=== PATIENT | female | born 1930 | race Caucasian/White ===

== ENCOUNTER 2017-07-22 02:58 | Observation (INO) | payer MEDICARE, BC ==
[~2017-07-22] VITALS: Ht 160 cm; Wt 82.0 kg
[~2017-07-22 02:58] MED LIST: CHOL400T32 PO; COR3.125T PO; CYAN-19 PO; FOLI0.4T2 PO; LISI-234 PO; MULT-1085 PO; OMEG1CAP2 PO; OSC500T PO; POTA-82 PO; VITA400C65 PO; WARF-55 PO
[2017-07-22 03:43] LABS: BASOPHILS % (AUTO) 0.7 % (0-1); EOSINOPHILS # (AUTO) 0.3 X10'3 (0-0.9); EOSINOPHILS % (AUTO) 3.6 % (0-6); HEMATOCRIT 39.4 % (35.0-45.0); HEMOGLOBIN 13.4 g/dl (12.0-16.0); LYMPHOCYTES # (AUTO) 2.3 X10'3 (1.1-4.8); LYMPHOCYTES % (AUTO) 33.2 % (21-51); MEAN CORPUSCULAR HEMOGLOBIN 31.8 PG (27.0-31.0); MEAN CORPUSCULAR HGB CONC 34.1 % (33.0-36.5); MEAN CORPUSCULAR VOLUME 93.2 FL (78-98); MEAN PLATELET VOLUME 8.6 FL (7.4-10.4); MONOCYTES # (AUTO) 0.7 X10'3 (0-0.9); MONOCYTES % (AUTO) 9.7 % (2-12); NEUTROPHILS # (AUTO) 3.7 X10'3 (1.8-7.7); NEUTROPHILS % (AUTO) 52.8 % (42-75); PLATELET COUNT 153 X10'3 (140-440); RED BLOOD COUNT 4.23 X10'6 (4.20-5.60); RED CELL DISTRIBUTION WIDTH 13.2 % (11.5-14.5); WHITE BLOOD COUNT 6.9 X10'3 (4.5-11.0)
[2017-07-22] MEDS ORDERED: LISI1TAB11 PO (03:49)
[2017-07-22] MEDS ORDERED: OXYB10TA4 PO (03:49)
[2017-07-22 03:55] LABS: INR 1.9 INR; PARTIAL THROMBOPLASTIN TIME 42 SECONDS (22-32); PROTHROMBIN TIME 19.1 SECONDS (9.0-12.0)
[2017-07-22 03:59] LABS: ALANINE AMINOTRANSFERASE 31 U/L (12-78); ALBUMIN 4.1 G/DL (3.4-5.0); ALBUMIN/GLOBULIN RATIO 1.4 (1.1-1.5); ALKALINE PHOSPHATASE 82 IU/L (46-116); ANION GAP 9 (8-16); ASPARTATE AMINO TRANSFERASE 21 U/L (10-37); BILIRUBIN,TOTAL 0.9 MG/DL (0.1-1.0); BLOOD UREA NITROGEN 16 MG/DL (7-18); BUN/CREATININE RATIO 19.5 (6.6-38.0); CALCIUM 9.3 MG/DL (8.5-10.1); CHLORIDE 103 MMOL/L (99-107); CREATININE 0.82 MG/DL (0.40-0.90); GLUCOSE 103 MG/DL (70-104); POTASSIUM 3.5 MMOL/L (3.5-5.1); SODIUM 141 MMOL/L (135-145); TOTAL CARBON DIOXIDE 29.2 MMOL/L (24-32); TOTAL PROTEIN 7.1 G/DL (6.4-8.2); eGFR 66 ML/MIN
[2017-07-22] MEDS ORDERED: acetaminophen 325mg tablet PO PRN ×2 (04:20)
[2017-07-22] MEDS ORDERED: morphine 4 MG/ML inj SYRINge IV PRN ×2 (04:20)
[2017-07-22] MEDS ORDERED: nitroGLYCERIN 0.4mg SUBLingual tab SL PRN (04:20)
[2017-07-22] MEDS ORDERED: cloNIDine 0.1 mg tablet PO PRN (05:30)
[2017-07-22 05:45] VITALS: BP 186/114
[2017-07-22 06:00] VITALS: BP 185/112
[2017-07-22 07:01] LABS: CHOLESTEROL 146 MG/DL (0-200); HDL CHOLESTEROL 49 MG/DL (35-60); LDL CHOLESTEROL 86 MG/DL (50-100); TRIGLYCERIDES 41 MG/DL (20-135)
[2017-07-22] MEDS ORDERED: aspirin 325mg tablet PO SCH (08:00)
[2017-07-22] MEDS ORDERED: HYDROchlorothiazide 25mg tablet PO SCH (08:00)
[2017-07-22] MEDS ORDERED: multivitamins, therapeutics tablet PO SCH (08:00)
[2017-07-22] MEDS ORDERED: oxybutynin 5mg tablet PO SCH (08:00)
[2017-07-22] MEDS ORDERED: heparin, porcine 5000 units/ml vial SQ SCH (08:00)
[2017-07-22] MEDS ORDERED: lisinopril 20mg tablet PO SCH (08:00)
[2017-07-22] MEDS ORDERED: folic acid 0.4mg tablet PO SCH (08:00)
[2017-07-22] MEDS ORDERED: carvedilol 6.25mg tablet PO SCH (08:00)
[2017-07-22] MEDS ORDERED: cholecalciferol (vitamin D) 400 unit tablet PO SCH (08:00)
[2017-07-22] MEDS ORDERED: calcium carbonate 500mg tablet PO SCH (08:00)
[2017-07-22] MEDS ORDERED: non-formulary drug (Omega-3 Fatty Acids/Fish Oil (Fish Oil 1,000 mg Capsule) 1 CAP) PO SCH (08:00)
[2017-07-22] MEDS ORDERED: cyanocobalamin 500mcg tablet PO SCH (08:00)
[2017-07-22] MEDS ORDERED: vitamin E 400 unit capsule PO SCH (08:00)
[2017-07-22] MEDS ORDERED: potassium Cl 20 mEq SR tablet PO SCH (08:00)
[2017-07-22] MEDS ORDERED: magnesium Cl slow-release 64mg tablet PO PRN (09:00)
[2017-07-22] MEDS ORDERED: magnesium 4gm in 100ml NS 100 ML IV PRN (09:00)
[2017-07-22] MEDS ORDERED: magnesium 2GM in 50ml NS 50 ML IV PRN (09:00)
[2017-07-22] MEDS ORDERED: potassium Cl 20 mEq SR tablet PO PRN ×2 (09:00)
[2017-07-22] MEDS ORDERED: potassium Cl 40MEQ/NS 500ml 500 ML IV PRN ×2 (09:00)
[2017-07-22 10:42] VITALS: BP 147/92
[2017-07-22] MEDS ORDERED: NITR0.4T51 SL (10:53)
[2017-07-22] MEDS ORDERED: ASPI-611 PO (10:53)
[2017-07-22 11:00] VITALS: BP 148/97
[2017-07-22] MEDS ORDERED: warfarin 5mg tablet PO SCH (21:00)
[2017-07-22] MEDS ORDERED: carVEDilol 3.125mg tablet PO SCH (21:00)
[2017-07-22] MEDS ORDERED: temazepam 15mg capsule PO PRN (21:00)
== END 2017-07-22 11:55 | disposition home or self-care (01) ==
LOC: ER 02:59 → PCU 3S 04:16 → UNDOADMOB 04:16 → INTOOBSV 04:16 → PCU 3S 05:31 → CMPBEDREQ 07:01 → UNDODISOB 11:55
PROVIDERS: ADMIT Internal Medicine; ATTEND Internal Medicine
DX: R07.89 Other chest pain (principal); I48.91 Unspecified atrial fibrillation; I35.0 Nonrheumatic aortic (valve) stenosis; I10 Essential (primary) hypertension; Z86.73 Personal history of transient ischemic attack (TIA), and cerebral infarction without residual deficits; Z79.01 Long term (current) use of anticoagulants
CPT/HCPCS: 36415; 71045; 80053; 80061; 84484; 85025; 85610; 85730; 87070; 93005; 96372; 99285; G0378; J1644

== ENCOUNTER 2018-02-25 02:12 | Inpatient (IN) | payer MEDICARE, BC ==
[~2018-02-25] VITALS: Ht 160 cm; Wt 78.0 kg
[~2018-02-25 02:12] MED LIST changes: -LISI-234 PO; +LISI1TAB11 PO; +NITR0.4T51 SL; +OXYB10TA4 PO
[2018-02-25 02:57] LABS: BASOPHILS % (AUTO) 0.7 % (0-1); EOSINOPHILS # (AUTO) 0.2 X10'3 (0-0.9); EOSINOPHILS % (AUTO) 3.1 % (0-6); HEMATOCRIT 36.6 % (35.0-45.0); HEMOGLOBIN 12.4 g/dl (12.0-16.0); LYMPHOCYTES % (AUTO) 29.3 % (21-51); MEAN CORPUSCULAR HEMOGLOBIN 30.9 PG (27.0-31.0); MEAN CORPUSCULAR HGB CONC 33.8 % (33.0-36.5); MEAN CORPUSCULAR VOLUME 91.5 FL (78-98); MEAN PLATELET VOLUME 8.9 FL (7.4-10.4); MONOCYTES # (AUTO) 0.7 X10'3 (0-0.9); MONOCYTES % (AUTO) 10.1 % (2-12); NEUTROPHILS # (AUTO) 3.9 X10'3 (1.8-7.7); NEUTROPHILS % (AUTO) 56.8 % (42-75); PLATELET COUNT 176 X10'3 (140-440); RED CELL DISTRIBUTION WIDTH 13.6 % (11.5-14.5); WHITE BLOOD COUNT 6.9 X10'3 (4.5-11.0)
[2018-02-25 03:11] LABS: ALANINE AMINOTRANSFERASE 33 U/L (12-78); ALBUMIN 3.7 G/DL (3.4-5.0); ALBUMIN/GLOBULIN RATIO 1.2 (1.1-1.5); ALKALINE PHOSPHATASE 113 IU/L (46-116); ANION GAP 10 (8-16); ASPARTATE AMINO TRANSFERASE 24 U/L (10-37); BILIRUBIN,TOTAL 0.8 MG/DL (0.1-1.0); BLOOD UREA NITROGEN 20 MG/DL (7-18); BUN/CREATININE RATIO 23.5 (6.6-38.0); CALCIUM 9.7 MG/DL (8.5-10.1); CHLORIDE 102 MMOL/L (99-107); CREATININE 0.85 MG/DL (0.40-0.90); GLUCOSE 114 MG/DL (70-104); POTASSIUM 3.6 MMOL/L (3.5-5.1); SODIUM 140 MMOL/L (135-145); TOTAL CARBON DIOXIDE 28.2 MMOL/L (24-32); TOTAL PROTEIN 6.8 G/DL (6.4-8.2); eGFR 64 ML/MIN
[2018-02-25 03:13] LABS: INR 1.7 INR; PARTIAL THROMBOPLASTIN TIME 42 SECONDS (22-32); PROTHROMBIN TIME 16.7 SECONDS (9.0-12.0)
[2018-02-25] MEDS ORDERED: LISINOPRIL-HCTZ 20-12.5 MG TAB (03:27)
[2018-02-25] MEDS ORDERED: OXYBUTYNIN CL ER 10 MG TABLET (03:27)
[2018-02-25] MEDS ORDERED: WARFARIN SODIUM 1 MG TABLET (03:27)
[2018-02-25] MEDS ORDERED: VITAMIN D3 400 UNIT TABLET (03:27)
[2018-02-25] MEDS ORDERED: CARVEDILOL 6.25 MG TABLET (03:27)
[2018-02-25] MEDS ORDERED: WARFARIN SODIUM 5 MG TABLET (03:27)
[2018-02-25] MEDS ORDERED: normal saline 1000ml 1,000 ML IV SCH (03:59)
[2018-02-25] MEDS ORDERED: magnesium hydroxide 30ml (MOM) UD suspension PO PRN (04:00)
[2018-02-25] MEDS ORDERED: ondansetron/PF 4mg/2ml inj IV PRN (04:00)
[2018-02-25] MEDS ORDERED: bisacodyl 10mg suppository rectal RC PRN (04:00)
[2018-02-25] MEDS ORDERED: mag hydrox/Alum hydrox/simeth 30ml oral suspension PO PRN (04:00)
[2018-02-25] MEDS ORDERED: acetaminophen 325mg tablet PO PRN ×2 (04:00)
[2018-02-25] MEDS ORDERED: HYDROcodone/acetaminophen 10/325mg tab PO PRN (04:00)
[2018-02-25] MEDS ORDERED: metoclopramide 5 mg/ml inj IV PRN (04:00)
[2018-02-25] MEDS ORDERED: morphine 2 MG/ML inj. syringe IV PRN (04:00)
[2018-02-25] MEDS ORDERED: HYDROmorphone 1 mg/ml syringe IV PRN (04:00)
[2018-02-25] MEDS ORDERED: acetaminophen 650mg rectal suppository RC PRN (04:00)
[2018-02-25] MEDS ORDERED: hydrALAZINE 20mg/ml inj. IV PRN (04:05)
[2018-02-25 05:18] LABS: D-DIMER 0.31 MG/L FEU (0-0.50)
[2018-02-25 05:28] LABS: MAGNESIUM 1.7 MG/DL (1.5-2.4); PHOSPHORUS 3.8 MG/DL (2.3-4.5)
[2018-02-25 06:04] LABS: HEMOGLOBIN A1C 5.4 % (4.5-6.2)
[2018-02-25] MEDS ORDERED: nitroGLYCERIN 0.4mg SUBLingual tab SL PRN (06:45)
[2018-02-25 07:50] VITALS: BP 160/108
[2018-02-25] MEDS ORDERED: carvedilol 6.25mg tablet PO SCH (08:00)
[2018-02-25] MEDS ORDERED: furosemide 40mg/4ml inj IV SCH (08:00)
[2018-02-25] MEDS ORDERED: HYDROchlorothiazide 25mg tablet PO SCH (08:00)
[2018-02-25] MEDS ORDERED: oxybutynin 5mg tablet PO SCH (08:00)
[2018-02-25] MEDS ORDERED: lisinopril 20mg tablet PO SCH (08:00)
[2018-02-25] MEDS ORDERED: warfarin 5mg tablet PO SCH (08:00)
[2018-02-25] MEDS ORDERED: atorvastatin 20mg tablet PO SCH (08:00)
[2018-02-25] MEDS ORDERED: docusate sod 100mg capsule PO SCH (08:00)
[2018-02-25] MEDS ORDERED: nitroGLYCERIN 0.2mg/hour patch TD SCH (08:00)
[2018-02-25] MEDS ORDERED: aspirin 81mg tab.chew PO SCH (08:30)
[2018-02-25] MEDS ORDERED: FURO-150 PO (14:05)
[2018-02-25] MEDS ORDERED: temazepam 15mg capsule PO PRN (21:00)
[2018-02-25] MEDS ORDERED: famotidine 20mg tablet PO SCH (21:00)
== END 2018-02-25 16:15 | disposition home or self-care (01) | DRG 304 ==
LOC: ER 02:13 → ED HOLD 03:59 → ORTHO 4S 07:50
PROVIDERS: ADMIT Family Medicine; ATTEND Internal Medicine
DX: I16.1 Hypertensive emergency (principal); I50.33 Acute on chronic diastolic (congestive) heart failure; I11.0 Hypertensive heart disease with heart failure; I25.10 Atherosclerotic heart disease of native coronary artery without angina pectoris; I35.0 Nonrheumatic aortic (valve) stenosis; I48.0 Paroxysmal atrial fibrillation; I25.2 Old myocardial infarction; Z79.899 Other long term (current) drug therapy; Z79.01 Long term (current) use of anticoagulants; Z91.011 Allergy to milk products; Z86.73 Personal history of transient ischemic attack (TIA), and cerebral infarction without residual deficits; Z82.49 Family history of ischemic heart disease and other diseases of the circulatory system
CPT/HCPCS: 36415; 71045; 80053; 83036; 83735; 83880; 84100; 84443; 84484; 85025; 85379; 85610; 85730; 87070; 93005; 93306; 99285; G0378; J1940

== ENCOUNTER 2020-02-16 13:04 | Emergency (ER) | payer MEDICARE, BC ==
[~2020-02-16] VITALS: Ht 165.1 cm; Wt 72.0 kg
[~2020-02-16 13:04] MED LIST changes: -CYAN-19 PO; +CYAN100019 PO; +FURO-150 PO; -LISI1TAB11 PO; +LISI1TAB51 PO; -NITR0.4T51 SL; +VITA-134 PO; -VITA400C65 PO
--- NOTE | 2020-02-16 13:28 | NUR ---
Due to the unknown regarding a positive head strike and patient being on warfarin. rAic KHANNA calling patient a trauma level 2, Tiera FU aware and notified help desk specialist regarding trauma to be paged out.
--- NOTE | 2020-02-16 13:40 | NUR ---
PT TO CT VIA [facility]
[2020-02-16 13:52] LABS: BASOPHILS # (AUTO) 0.1 X10'3 (0-0.2); BASOPHILS % (AUTO) 1.3 % (0-1); EOSINOPHILS # (AUTO) 0.2 X10'3 (0-0.9); EOSINOPHILS % (AUTO) 2.6 % (0-6); HEMATOCRIT 34.3 % (35.0-45.0); HEMOGLOBIN 11.7 g/dl (12.0-16.0); LYMPHOCYTES # (AUTO) 1.7 X10'3 (1.1-4.8); LYMPHOCYTES % (AUTO) 22.1 % (21-51); MEAN CORPUSCULAR HEMOGLOBIN 32.9 PG (27.0-31.0); MEAN CORPUSCULAR HGB CONC 34.3 g/dL (33.0-36.5); MEAN PLATELET VOLUME 8.6 FL (7.4-10.4); MONOCYTES # (AUTO) 0.7 X10'3 (0-0.9); MONOCYTES % (AUTO) 9.4 % (2-12); NEUTROPHILS % (AUTO) 64.6 % (42-75); PLATELET COUNT 183 X10'3 (140-440); RED BLOOD COUNT 3.57 X10'6 (4.20-5.60); RED CELL DISTRIBUTION WIDTH 14.4 % (11.5-14.5); WHITE BLOOD COUNT 7.7 X10'3 (4.5-11.0)
[2020-02-16 14:02] LABS: ALANINE AMINOTRANSFERASE 25 U/L (12-78); ALBUMIN 3.4 G/DL (3.4-5.0); ALKALINE PHOSPHATASE 90 IU/L (46-116); ANION GAP 7 (8-16); ASPARTATE AMINO TRANSFERASE 26 U/L (10-37); BLOOD UREA NITROGEN 24 MG/DL (7-18); CALCIUM 9.6 MG/DL (8.5-10.1); CHLORIDE 105 MMOL/L (99-107); GLUCOSE 124 MG/DL (70-104); SODIUM 143 MMOL/L (135-145); TOTAL CARBON DIOXIDE 31.4 MMOL/L (24-32); TOTAL PROTEIN 6.8 G/DL (6.4-8.2); eGFR 52 ML/MIN
[2020-02-16 14:03] LABS: POTASSIUM 4.2 MMOL/L (3.5-5.1)
--- NOTE | 2020-02-16 14:05 | NUR ---
PT BACK FROM CT
--- NOTE | 2020-02-16 15:00 | NUR ---
PA AWARE THAT UA NOT DONE, OK TO DISCHARGE
[2020-02-16 15:15] VITALS: BP 129/81
== END 2020-02-16 15:10 | disposition home or self-care (01) ==
LOC: ER 13:05
DX: K04.7 Periapical abscess without sinus (principal); R79.1 Abnormal coagulation profile; I48.91 Unspecified atrial fibrillation; F03.90 Unspecified dementia, unspecified severity, without behavioral disturbance, psychotic disturbance, mood disturbance, and anxiety; I10 Essential (primary) hypertension; I25.10 Atherosclerotic heart disease of native coronary artery without angina pectoris; Z98.890 Other specified postprocedural states; Z91.011 Allergy to milk products; Z79.01 Long term (current) use of anticoagulants; Z79.899 Other long term (current) drug therapy; Z86.73 Personal history of transient ischemic attack (TIA), and cerebral infarction without residual deficits
CPT/HCPCS: 36415; 70450; 80053; 85025; 85610; 99284; 99285

== ENCOUNTER 2020-02-20 18:25 | Emergency (ER) | payer MEDICARE, BC ==
[~2020-02-20] VITALS: Ht 172.7 cm; Wt 65.0 kg
[2020-02-20] MEDS ORDERED: ondansetron/PF 4mg/2ml inj IV ONE (18:55)
[2020-02-20 19:01] LABS: BASOPHILS # (AUTO) 0.1 X10'3 (0-0.2); BASOPHILS % (AUTO) 0.6 % (0-1); EOSINOPHILS # (AUTO) 0.1 X10'3 (0-0.9); HEMATOCRIT 34.1 % (35.0-45.0); HEMOGLOBIN 11.4 g/dl (12.0-16.0); LYMPHOCYTES # (AUTO) 0.4 X10'3 (1.1-4.8); LYMPHOCYTES % (AUTO) 3.9 % (21-51); MEAN CORPUSCULAR HEMOGLOBIN 32.4 PG (27.0-31.0); MEAN CORPUSCULAR HGB CONC 33.5 g/dL (33.0-36.5); MEAN CORPUSCULAR VOLUME 96.9 FL (78-98); MEAN PLATELET VOLUME 8.2 FL (7.4-10.4); MONOCYTES # (AUTO) 0.7 X10'3 (0-0.9); MONOCYTES % (AUTO) 6.4 % (2-12); NEUTROPHILS % (AUTO) 88.1 % (42-75); PLATELET COUNT 167 X10'3 (140-440); RED BLOOD COUNT 3.52 X10'6 (4.20-5.60); RED CELL DISTRIBUTION WIDTH 14.4 % (11.5-14.5); WHITE BLOOD COUNT 11.4 X10'3 (4.5-11.0)
[2020-02-20 19:18] LABS: ALANINE AMINOTRANSFERASE 22 U/L (12-78); ALBUMIN 3.3 G/DL (3.4-5.0); ALBUMIN/GLOBULIN RATIO 1.1 (1.1-1.5); ALKALINE PHOSPHATASE 68 IU/L (46-116); ANION GAP 7 (8-16); ASPARTATE AMINO TRANSFERASE 13 U/L (10-37); BILIRUBIN,TOTAL 1.7 MG/DL (0.1-1.0); BLOOD UREA NITROGEN 29 MG/DL (7-18); BUN/CREATININE RATIO 27.1 (6.6-38.0); CALCIUM 8.6 MG/DL (8.5-10.1); CHLORIDE 108 MMOL/L (99-107); CREATININE 1.07 MG/DL (0.40-0.90); GLUCOSE 129 MG/DL (70-104); LIPASE 57 U/L (73-393); SODIUM 147 MMOL/L (135-145); TOTAL PROTEIN 6.4 G/DL (6.4-8.2); eGFR 49 ML/MIN
[2020-02-20] MEDS ORDERED: potassium Cl 20 mEq SR tablet PO ONE (19:25)
--- NOTE | 2020-02-20 20:10 | NUR ---
PATIENT SUCCESFULLY DRANK 240 mL OF WATER PASSING PO CHALLENGE
[2020-02-20] MEDS ORDERED: ONDA4TAB6 PO (22:04)
[2020-02-20 22:17] VITALS: BP 116/78
== END 2020-02-20 22:23 | disposition home or self-care (01) ==
LOC: ER 18:26
DX: R19.7 Diarrhea, unspecified (principal); R11.2 Nausea with vomiting, unspecified; F03.90 Unspecified dementia, unspecified severity, without behavioral disturbance, psychotic disturbance, mood disturbance, and anxiety; I48.91 Unspecified atrial fibrillation; I10 Essential (primary) hypertension; I25.10 Atherosclerotic heart disease of native coronary artery without angina pectoris; Z86.73 Personal history of transient ischemic attack (TIA), and cerebral infarction without residual deficits; Z95.1 Presence of aortocoronary bypass graft; Z91.011 Allergy to milk products; Z79.01 Long term (current) use of anticoagulants; Z79.899 Other long term (current) drug therapy; Z98.818 Other dental procedure status
CPT/HCPCS: 36415; 80053; 83690; 85025; 96374; 99284; J2405; 96365; 96375

== ENCOUNTER 2020-02-22 10:19 | Inpatient (IN) | payer MEDICARE, BC ==
[~2020-02-22] VITALS: Ht 157.5 cm; Wt 72.7 kg
[~2020-02-22 10:19] MED LIST changes: +ONDA4TAB6 PO
--- NOTE | 2020-02-22 11:19 | NUR ---
To CT scan via gurney with the side rails raised.
[2020-02-22 11:52] LABS: BASOPHILS # (AUTO) 0.1 X10'3 (0-0.2); BASOPHILS % (AUTO) 0.9 % (0-1); EOSINOPHILS # (AUTO) 0.3 X10'3 (0-0.9); EOSINOPHILS % (AUTO) 3.7 % (0-6); HEMATOCRIT 32.9 % (35.0-45.0); HEMOGLOBIN 11.2 g/dl (12.0-16.0); LYMPHOCYTES # (AUTO) 1.2 X10'3 (1.1-4.8); MEAN CORPUSCULAR HGB CONC 34.1 g/dL (33.0-36.5); MEAN CORPUSCULAR VOLUME 96.7 FL (78-98); MEAN PLATELET VOLUME 8.6 FL (7.4-10.4); MONOCYTES # (AUTO) 0.9 X10'3 (0-0.9); MONOCYTES % (AUTO) 12.1 % (2-12); NEUTROPHILS # (AUTO) 5.2 X10'3 (1.8-7.7); NEUTROPHILS % (AUTO) 67.3 % (42-75); PLATELET COUNT 176 X10'3 (140-440); RED CELL DISTRIBUTION WIDTH 14.6 % (11.5-14.5); WHITE BLOOD COUNT 7.7 X10'3 (4.5-11.0)
[2020-02-22 11:59] LABS: ALBUMIN 3.4 G/DL (3.4-5.0); ANION GAP 6 (8-16); BLOOD UREA NITROGEN 35 MG/DL (7-18); BUN/CREATININE RATIO 36.5 (6.6-38.0); CALCIUM 9.9 MG/DL (8.5-10.1); CHLORIDE 108 MMOL/L (99-107); CREATININE 0.96 MG/DL (0.40-0.90); GLUCOSE 109 MG/DL (70-104); POTASSIUM 3.3 MMOL/L (3.5-5.1); SODIUM 147 MMOL/L (135-145); TOTAL CARBON DIOXIDE 33.4 MMOL/L (24-32); eGFR 55 ML/MIN
--- NOTE | 2020-02-22 12:22 | NUR ---
Pt reported she started having Chest pain. Dr. Howard is aware and plans to initiate the cardiac work up with zero hour troponin to be collected now. EKG is being completed at this time.
[2020-02-22] MEDS ORDERED: iohexol 300mg/ml 100ml inj. ONE (12:44)
--- NOTE | 2020-02-22 12:50 | NUR ---
Pt transported back to CT scan at this time. Pt is aggitated due to her baseline mental status so her daughter is with her to attempt to help keep the patient calm.
[2020-02-22] MEDS ORDERED: aspirin 81mg tab.chew PO ONE (13:05)
[2020-02-22] MEDS ORDERED: potassium CL 10mEq/100ml bag 100 ML IV PRN ×2 (13:40)
[2020-02-22] MEDS ORDERED: metoprolol tartrate 1mg/ml inj IV PRN (13:40)
[2020-02-22] MEDS ORDERED: potassium Cl 20 mEq SR tablet PO PRN ×2 (13:40)
[2020-02-22] MEDS ORDERED: regadenoson 0.4mg/5ml syringe IV ONE (13:40)
[2020-02-22] MEDS ORDERED: nitroGLYCERIN 0.4mg SUBLingual tab SL PRN (13:40)
[2020-02-22] MEDS ORDERED: HYDROcodone/acetaminophen 5mg/325mg tablet PO PRN (13:40)
[2020-02-22] MEDS ORDERED: magnesium 2GM in 50ml NS 50 ML IV PRN (13:40)
[2020-02-22] MEDS ORDERED: magnesium hydroxide 30ml (MOM) UD suspension PO PRN (13:40)
[2020-02-22] MEDS ORDERED: morphine 2 MG/ML inj. syringe IV PRN (13:40)
[2020-02-22] MEDS ORDERED: acetaminophen 325mg tablet PO PRN (13:40)
[2020-02-22] MEDS ORDERED: aminophylline 250mg/10ml inj. IV PRN (13:40)
[2020-02-22] MEDS ORDERED: ondansetron/PF 4mg/2ml inj IV PRN (13:40)
[2020-02-22] MEDS ORDERED: magnesium Cl slow-release 64mg tablet PO PRN (13:40)
[2020-02-22] MEDS ORDERED: mag hydrox/Alum hydrox/simeth 30ml oral suspension PO PRN (13:40)
[2020-02-22] MEDS ORDERED: magnesium 4gm in 100ml NS 100 ML IV PRN (13:40)
[2020-02-22] MEDS ORDERED: FERR-119 PO (14:25)
[2020-02-22] MEDS ORDERED: VITA400C67 PO (14:25)
[2020-02-22] MEDS ORDERED: CHLO118M PO (14:25)
[2020-02-22] MEDS ORDERED: FURO40TA4 PO (14:25)
[2020-02-22] MEDS ORDERED: SERT25TA PO (14:25)
[2020-02-22] MEDS ORDERED: CHOL100046 PO (14:25)
[2020-02-22] MEDS ORDERED: FERR236T3 PO (14:25)
[2020-02-22] MEDS ORDERED: SERT25TA5 PO (14:44)
[2020-02-22] MEDS ORDERED: CARV6.253 PO (14:44)
[2020-02-22] MEDS ORDERED: FERR-39 PO (14:44)
[2020-02-22] MEDS ORDERED: LORA-268 PEG (14:44)
[2020-02-22] MEDS ORDERED: OMEG-79 PO (14:44)
[2020-02-22] MEDS ORDERED: MAGN400C PO (14:44)
[2020-02-22] MEDS ORDERED: CARV3.12 PO (14:44)
[2020-02-22] MEDS ORDERED: QUET25TA PO (14:44)
[2020-02-22] MEDS ORDERED: CYAN500T64 PO (14:44)
[2020-02-22] MEDS ORDERED: TRAZ-256 PO (14:44)
[2020-02-22] MEDS ORDERED: FOLI0.4T14 PO (14:44)
[2020-02-22] MEDS ORDERED: CALC250T2 PO (14:44)
[2020-02-22] MEDS ORDERED: OXYB10TA4 PO (14:44)
[2020-02-22] MEDS ORDERED: LISI10TA4 PO (14:44)
[2020-02-22] MEDS ORDERED: CHOL50004 PO (14:44)
[2020-02-22] MEDS ORDERED: WARF1TAB83 PO (14:44)
[2020-02-22 15:00] VITALS: BP 145/104
--- NOTE | 2020-02-22 15:20 | NUR ---
Report received from Meena FU. Pt arrived from ER via gurney. To room 3012C. Pt oriented to room and assessed. Pt has no complaints at this time, denies any pain/discomfort, no s/sx distress. Will continue to monitor.
[2020-02-22] MEDS ORDERED: CefTRIAXone 2gm/D5W 50ml BAG 50 ML IV ONE (15:45)
--- NOTE | 2020-02-22 16:30 | NUR ---
Unable to dart patient, difficult to assess patient as well, due to pt's answers unreliable, changes answers, easily agitated, forgetful, confused, history of dementia and paranoia. Unable to reach Kareem, daughter at this time.
[2020-02-22 18:00] VITALS: BP 127/93
--- NOTE | 2020-02-22 18:17 | NUR ---
Problems reprioritized. Patient report given, questions answered & plan of care reviewed with Mary FU.
--- NOTE | 2020-02-22 18:50 | NUR ---
Patient in room PCU 3012. I have received report from Ayaka FU and had the opportunity to ask questions and assume patient care.
[2020-02-22] MEDS: heparin, porcine 5000 units/ml vial SQ SCH (19:46)
[2020-02-22] MEDS ORDERED: K and/or MAG REPLACEMENT MC SCH (20:00)
[2020-02-22] MEDS ORDERED: temazepam 15mg capsule PO PRN (21:00)
[2020-02-22 22:00] VITALS: BP 137/98
[2020-02-22] MEDS ORDERED: diphenhydrAMINE 50 mg/ml inj IV PRN (23:50)
[2020-02-23] VITALS (11 sets, daily range): BP systolic 131–165; BP diastolic 87–139
--- NOTE | 2020-02-23 | NUR ---
Pt. becoming angry, threatening to hit staff. Argumentative, irrational, and forgetful. MD notified, orders given. IV Benadryl admin f/minimal effect. IV MS admin as pt. C/O R shoulder pain. NPO now in prep f/[place] scan in am. Pt. slowly becoming less aggressive, combative. Blood drawn and MRSA swab obtained. Appears to be resting comfortably. Sitter remains at bedside.
[2020-02-23 01:16] LABS: BASOPHILS # (AUTO) 0.1 X10'3 (0-0.2); EOSINOPHILS # (AUTO) 0.4 X10'3 (0-0.9); EOSINOPHILS % (AUTO) 4.5 % (0-6); HEMATOCRIT 34.3 % (35.0-45.0); HEMOGLOBIN 11.9 g/dl (12.0-16.0); LYMPHOCYTES # (AUTO) 1.8 X10'3 (1.1-4.8); LYMPHOCYTES % (AUTO) 20.2 % (21-51); MEAN CORPUSCULAR HEMOGLOBIN 33.7 PG (27.0-31.0); MEAN CORPUSCULAR HGB CONC 34.7 g/dL (33.0-36.5); MEAN CORPUSCULAR VOLUME 96.9 FL (78-98); MEAN PLATELET VOLUME 8.8 FL (7.4-10.4); MONOCYTES # (AUTO) 0.8 X10'3 (0-0.9); MONOCYTES % (AUTO) 9.1 % (2-12); NEUTROPHILS # (AUTO) 5.7 X10'3 (1.8-7.7); NEUTROPHILS % (AUTO) 65.2 % (42-75); PLATELET COUNT 196 X10'3 (140-440); RED BLOOD COUNT 3.54 X10'6 (4.20-5.60); RED CELL DISTRIBUTION WIDTH 14.6 % (11.5-14.5); WHITE BLOOD COUNT 8.8 X10'3 (4.5-11.0)
[2020-02-23 01:45] LABS: ALANINE AMINOTRANSFERASE 22 U/L (12-78); ALBUMIN 3.5 G/DL (3.4-5.0); ALKALINE PHOSPHATASE 80 IU/L (46-116); ANION GAP 7 (8-16); ASPARTATE AMINO TRANSFERASE 18 U/L (10-37); BLOOD UREA NITROGEN 31 MG/DL (7-18); CALCIUM 9.4 MG/DL (8.5-10.1); CHLORIDE 104 MMOL/L (99-107); GLUCOSE 106 MG/DL (70-104); POTASSIUM 3.5 MMOL/L (3.5-5.1); SODIUM 143 MMOL/L (135-145); TOTAL CARBON DIOXIDE 32.4 MMOL/L (24-32); TOTAL PROTEIN 6.9 G/DL (6.4-8.2); eGFR 52 ML/MIN
[2020-02-23 01:48] LABS: MAGNESIUM 1.6 MG/DL (1.5-2.4)
[2020-02-23 02:16] LABS: CLARITY,URINE CLEAR (Clear); COLOR,URINE YELLOW (Yellow); GLUCOSE, URINE NEGATIVE (Neg); KETONES,URINE TRACE mg/dl (Neg); LEUKOCYTE ESTERASE ,URINE MODERATE (Neg); NITRITES, URINE NEGATIVE (Neg); OCCULT BLOOD,URINE NEGATIVE (Neg); PROTEIN,URINE NEGATIVE (Neg)
[2020-02-23 02:22] LABS: UA COLLECTION TYPE VOIDED
[2020-02-23 02:23] LABS: BACTERIA,URINE FEW /HPF (Neg); RBC,URINE NONE SEEN /HPF (0-2); SQUAMOUS EPITHELIAL CELL,UR FEW /LPF (FEW); WBC CLUMPS,URINE FEW /HPF (NEGATIVE)
--- NOTE | 2020-02-23 06:50 | NUR ---
Patient in room PCU 3012. I have received report from NICKIE Hernandez and had the opportunity to ask questions and assume patient care.
--- NOTE | 2020-02-23 06:57 | NUR ---
Problems reprioritized. Patient report given, questions answered & plan of care reviewed with Stephy FU.
[2020-02-23] MEDS ORDERED: pantoprazole 40mg Tablet.DR PO SCH (07:30)
[2020-02-23] MEDS ORDERED: lisinopril 10 MG tablet PO SCH (08:00)
[2020-02-23] MEDS ORDERED: furosemide 20MG tablet PO SCH (08:00)
[2020-02-23] MEDS ORDERED: sertraline 25mg tablet PO SCH (08:00)
[2020-02-23] MEDS: heparin, porcine 5000 units/ml vial SQ SCH (08:00)
[2020-02-23] MEDS ORDERED: carVEDilol 3.125mg tablet PO SCH (08:00)
--- NOTE | 2020-02-23 09:11 | NUR ---
Pt transported to [facility] via wheelchair
--- NOTE | 2020-02-23 11:01 | NUR ---
Pt returned from [facility] Addendum: 02/23/20 at 1105 by Stephy Hyde RN please disregard note, pt has not returned from [facility] at this time
--- NOTE | 2020-02-23 11:15 | NUR ---
Pt returned from [facility] via wheelchair. Sitter at bedside. hospitalist aware.
[2020-02-23] MEDS ORDERED: pneumococcal 23-VAL P-sac vacc 25 mcg/0.5ml vial IMVAC ONE (11:50)
--- NOTE | 2020-02-23 14:50 | NUR ---
Pt discharged to home at [facility], with all belongings, in private vehicle. Discharge instructions and medications reviewed with daughterKareem. No new medications ordered. Fall prevention program discussed with daughter, as well as non cardiac chest pain. Daughter instructed to have pt follow up with Dr Gutierrez in 1-2 weeks, as well as PCP. IV DC'd, cannula intact. Daughter stated understanding and willingness to comply with all discharge instructions. Pt escorted to front lobby via wheelchair by primary RN.
[2020-02-23] MEDS ORDERED: CIPR250T4 PO (15:30)
== END 2020-02-23 14:17 | disposition home or self-care (01) | DRG 391 ==
LOC: ER 10:19 → ED HOLD 13:36 → EDBEDREQ 14:08 → PCU 3S 15:25
PROVIDERS: ADMIT Internal Medicine; ATTEND Internal Medicine
PROC: BW211ZZ Computerized Tomography (CT Scan) of Abdomen and Pelvis using Low Osmolar Contrast (ICD-10-PCS; 2020-02-22)
PROC: 4A02XM4 Measurement of Cardiac Total Activity, External Approach (ICD-10-PCS; principal; 2020-02-23)
PROC: 3E073KZ Introduction of Other Diagnostic Substance into Coronary Artery, Percutaneous Approach (ICD-10-PCS; 2020-02-23)
PROC: 3E0234Z Introduction of Serum, Toxoid and Vaccine into Muscle, Percutaneous Approach (ICD-10-PCS; 2020-02-23)
DX: K21.9 Gastro-esophageal reflux disease without esophagitis (principal); I21.A1 Myocardial infarction type 2; I48.20 Chronic atrial fibrillation, unspecified; N39.0 Urinary tract infection, site not specified; E87.6 Hypokalemia; I35.0 Nonrheumatic aortic (valve) stenosis; W18.39XA Other fall on same level, initial encounter; R29.6 Repeated falls; Z20.828 Contact with and (suspected) exposure to other viral communicable diseases; Z66 Do not resuscitate; I10 Essential (primary) hypertension; F03.90 Unspecified dementia, unspecified severity, without behavioral disturbance, psychotic disturbance, mood disturbance, and anxiety; S09.90XA Unspecified injury of head, initial encounter; Z23 Encounter for immunization; Y93.89 Activity, other specified; Y92.89 Other specified places as the place of occurrence of the external cause; Y99.8 Other external cause status; Z79.01 Long term (current) use of anticoagulants; Z86.73 Personal history of transient ischemic attack (TIA), and cerebral infarction without residual deficits; Z82.49 Family history of ischemic heart disease and other diseases of the circulatory system
CPT/HCPCS: 36415; 70450; 71045; 72125; 74177; 78452; 80048; 80053; 81001; 83735; 84484; 85025; 85610; 87081; 87088; 87635; 93005; 93017; 93306; 93308; 96365; 97116; 97161; 97530; 99285; A9500; C9803; G0378; J0696; J1200; J1644; J2270; J2785; Q9967

== ENCOUNTER 2020-03-28 16:13 | Emergency (ER) | payer MEDICARE, BC ==
[~2020-03-28] VITALS: Ht 157.5 cm; Wt 76.8 kg
[~2020-03-28 16:13] MED LIST changes: +CARV3.12 PO; -CHOL400T32 PO; +CHOL50004 PO; -COR3.125T PO; -CYAN100019 PO; +CYAN500T64 PO; +FERR-39 PO; +FOLI0.4T14 PO; -FOLI0.4T2 PO; -FURO-150 PO; +FURO40TA4 PO; +LISI10TA4 PO; -LISI1TAB51 PO; +LORA-268 PEG; +MAGN400C PO; +OMEG-79 PO; -OMEG1CAP2 PO; -ONDA4TAB6 PO; -OXYB10TA4 PO; +SERT25TA5 PO; +TRAZ-256 PO; -VITA-134 PO; -WARF-55 PO; +WARF1TAB83 PO
[2020-03-28 16:47] LABS: BASOPHILS # (AUTO) 0.1 X10'3 (0-0.2); BASOPHILS % (AUTO) 0.9 % (0-1); EOSINOPHILS # (AUTO) 0.3 X10'3 (0-0.9); EOSINOPHILS % (AUTO) 3.4 % (0-6); HEMATOCRIT 32.9 % (35.0-45.0); HEMOGLOBIN 11.2 g/dl (12.0-16.0); LYMPHOCYTES # (AUTO) 1.8 X10'3 (1.1-4.8); LYMPHOCYTES % (AUTO) 22.7 % (21-51); MEAN CORPUSCULAR HEMOGLOBIN 34.1 PG (27.0-31.0); MEAN CORPUSCULAR HGB CONC 34.2 g/dL (33.0-36.5); MEAN CORPUSCULAR VOLUME 99.8 FL (78-98); MEAN PLATELET VOLUME 8.4 FL (7.4-10.4); MONOCYTES # (AUTO) 0.8 X10'3 (0-0.9); MONOCYTES % (AUTO) 10.3 % (2-12); NEUTROPHILS % (AUTO) 62.7 % (42-75); PLATELET COUNT 187 X10'3 (140-440)
[2020-03-28] MEDS ORDERED: furosemide 10 MG/1 ML 10ml inj IV ONE (16:55)
[2020-03-28 17:02] LABS: ALANINE AMINOTRANSFERASE 26 U/L (12-78); ALBUMIN 3.6 G/DL (3.4-5.0); ALBUMIN/GLOBULIN RATIO 1.1 (1.1-1.5); ALKALINE PHOSPHATASE 94 IU/L (46-116); ANION GAP 5 (8-16); ASPARTATE AMINO TRANSFERASE 25 U/L (10-37); BILIRUBIN,TOTAL 1.6 MG/DL (0.1-1.0); BLOOD UREA NITROGEN 32 MG/DL (7-18); BUN/CREATININE RATIO 32.7 (6.6-38.0); CALCIUM 9.2 MG/DL (8.5-10.1); CHLORIDE 105 MMOL/L (99-107); CREATININE 0.98 MG/DL (0.40-0.90); GLUCOSE 97 MG/DL (70-104); POTASSIUM 4.4 MMOL/L (3.5-5.1); SODIUM 142 MMOL/L (135-145); TOTAL CARBON DIOXIDE 32.5 MMOL/L (24-32); TOTAL PROTEIN 6.9 G/DL (6.4-8.2); eGFR 54 ML/MIN
--- NOTE | 2020-03-28 17:32 | NUR ---
vascular at bedside
[2020-03-28 18:52] VITALS: BP 152/109
== END 2020-03-28 18:55 | disposition home or self-care (01) ==
LOC: ER 16:14
DX: S80.11XA Contusion of right lower leg, initial encounter (principal); R60.0 Localized edema; I48.91 Unspecified atrial fibrillation; I10 Essential (primary) hypertension; Z86.73 Personal history of transient ischemic attack (TIA), and cerebral infarction without residual deficits; Z98.890 Other specified postprocedural states; Z91.011 Allergy to milk products; Z79.899 Other long term (current) drug therapy; X58.XXXA Exposure to other specified factors, initial encounter; Y93.89 Activity, other specified; Y92.89 Other specified places as the place of occurrence of the external cause; Y99.8 Other external cause status
CPT/HCPCS: 36415; 71045; 73560; 73590; 80053; 83880; 84484; 85025; 93005; 93971; 96374; 99285; J1940

== ENCOUNTER 2020-04-25 13:38 | Emergency (ER) | payer MEDICARE, BC ==
[~2020-04-25] VITALS: Ht 157.5 cm; Wt 81.8 kg
[~2020-04-25 13:38] MED LIST changes: -CYAN500T64 PO; +CYAN500T71 PO
[2020-04-25 18:41] LABS: BASOPHILS # (AUTO) 0.1 X10'3 (0-0.2); BASOPHILS % (AUTO) 0.7 % (0-1); EOSINOPHILS # (AUTO) 0.2 X10'3 (0-0.9); EOSINOPHILS % (AUTO) 1.4 % (0-6); HEMATOCRIT 38.7 % (35.0-45.0); HEMOGLOBIN 12.6 g/dl (12.0-16.0); LYMPHOCYTES # (AUTO) 1.4 X10'3 (1.1-4.8); LYMPHOCYTES % (AUTO) 12.1 % (21-51); MEAN CORPUSCULAR HEMOGLOBIN 32.2 PG (27.0-31.0); MEAN CORPUSCULAR HGB CONC 32.7 g/dL (33.0-36.5); MEAN CORPUSCULAR VOLUME 98.5 FL (78-98); MEAN PLATELET VOLUME 8.3 FL (7.4-10.4); NEUTROPHILS # (AUTO) 9.2 X10'3 (1.8-7.7); NEUTROPHILS % (AUTO) 77.8 % (42-75); PLATELET COUNT 258 X10'3 (140-440); RED BLOOD COUNT 3.93 X10'6 (4.20-5.60); RED CELL DISTRIBUTION WIDTH 15.3 % (11.5-14.5); WHITE BLOOD COUNT 11.9 X10'3 (4.5-11.0)
[2020-04-25 18:48] LABS: ALBUMIN 3.1 G/DL (3.4-5.0); ANION GAP 8 (8-16); BILIRUBIN,TOTAL 0.8 MG/DL (0.1-1.0); BLOOD UREA NITROGEN 28 MG/DL (7-18); BUN/CREATININE RATIO 26.9 (6.6-38.0); CALCIUM 9.1 MG/DL (8.5-10.1); CHLORIDE 103 MMOL/L (99-107); CREATININE 1.04 MG/DL (0.40-0.90); GLUCOSE 112 MG/DL (70-104); POTASSIUM 3.6 MMOL/L (3.5-5.1); SODIUM 146 MMOL/L (135-145); TOTAL CARBON DIOXIDE 35.4 MMOL/L (24-32); TOTAL PROTEIN 7.4 G/DL (6.4-8.2); eGFR 50 ML/MIN
[2020-04-25 18:49] LABS: ALANINE AMINOTRANSFERASE 18 U/L (12-78); ALBUMIN/GLOBULIN RATIO 0.7 (1.1-1.5); ALKALINE PHOSPHATASE 107 IU/L (46-116); ASPARTATE AMINO TRANSFERASE 16 U/L (10-37)
[2020-04-25 20:21] VITALS: BP 156/106
--- NOTE | 2020-04-25 20:22 | NUR ---
HR 119, otherwise vss. Pt reports no pain but [id number] she is cold. Daughter reports she suspects the patient has pain d/t darion egrimace to her face. daugher is rubbing pts toes. Pt reports being cold. Adtl blankets given.
--- NOTE | 2020-04-25 20:30 | NUR ---
PA GOOD TALKING WITH PT AND DAUGHTER AT THIS TIME AND UPDATING OF PLAN OF CARE. DAUGHTER REPORTS THAT THE PT WANTS TO GO HOME. PA STATES HE WILL DISCHARGE HER.
== END 2020-04-25 22:35 | disposition home or self-care (01) ==
LOC: ER 13:39
DX: I87.2 Venous insufficiency (chronic) (peripheral) (principal); R60.0 Localized edema; I48.91 Unspecified atrial fibrillation; I10 Essential (primary) hypertension; Z86.73 Personal history of transient ischemic attack (TIA), and cerebral infarction without residual deficits; Z98.890 Other specified postprocedural states; Z91.011 Allergy to milk products; Z79.899 Other long term (current) drug therapy
CPT/HCPCS: 36415; 80053; 83605; 84145; 85025; 99284